=== PATIENT | female | born 1980 | race African-American/Black ===

== ENCOUNTER 2018-02-04 11:24 | Emergency (ER) | payer MEDICAID, OTHER ==
[2018-02-04] MEDS ORDERED: OXYCODONE-ACETAMINOPHEN 5-325 MG TABLET PO ONE (12:47)
[2018-02-04] MEDS ORDERED: CYCLOBENZAPRINE HCL 10 MG TABLET PO ONE (12:47)
[2018-02-04] MEDS ORDERED: ONDANSETRON 4 MG TAB.RAPDIS PO ONE (12:47)
--- NOTE | 2018-02-04 12:52 | ER Document Report ---
HPI - HPI Patient complains to provider of: Low back pain Onset: Yesterday Onset/Duration: Sudden Quality of pain: Achy Severity: Severe Pain Level: 5 Context: Patient presents emergency department with complaints of right-sided low back pain that started yesterday when she was laying on the couch and moved her feet to stand up. She denies trauma. She denies history of IV drug use. Denies fever vomiting diarrhea. Reports no urinary or bowel incontinence or retention. LBM yesterday. Denies weakness or numbness. Patient reports it hurts. She has not taken any kind of Tylenol or Motrin. Reports this never happened to her before. Associated Symptoms: None Exacerbated by: Movement Relieved by: Supine Similar symptoms previously: No Recently seen / treated by doctor: No - MUSCULOSKELETAL Musculoskeletal: REPORTS: Extremity pain Past Medical History - General Information source: Patient Last Menstrual Period: dec, reports she is not sexually active - Social History Smoking Status: Current Every Day Smoker Cigarette use (# per day): Yes Frequency of alcohol use: None Drug Abuse: None Lives with: Family Family History: None Patient has suicidal ideation: No Patient has homicidal ideation: No - Medical History Medical History: Negative Renal/ Medical History: Denies: Hx Peritoneal Dialysis Past Surgical History: Reports: Hx Section - x2 Vertical Provider Document - CONSTITUTIONAL Agree With Documented VS: Yes Exam Limitations: No Limitations General Appearance: WD/WN, Mild Distress - tearful - INFECTION CONTROL TRAVEL OUTSIDE OF THE [place] IN LAST 30 DAYS: No - HEENT HEENT: Atraumatic, Normocephalic - NECK Neck: Normal Inspection, Supple - RESPIRATORY Respiratory: Breath Sounds Normal, No Respiratory Distress, Chest Non-Tender - CARDIOVASCULAR Cardiovascular: Regular Rate, Regular Rhythm - GI/ABDOMEN Gastrointestinal: Abdomen Soft, Abdomen Non-Tender - BACK Back: Normal Inspection - No obvious deformity no erythema warmth or swelling good distal movement and sensation complains of back pain with right straight leg to approximately 30 degrees. No weakness - MUSCULOSKELETAL/EXTREMETIES Musculoskeletal/Extremeties: MAEW, FROM, Non-Tender - NEURO Level of Consciousness: Awake, Alert, Appropriate Motor/Sensory: No Motor Deficit - DERM Integumentary: Warm, Dry, No Rash Adult Front & Back Diagram: 1 - reports pain 2 - reports pain radiating down right leg Course - Re-evaluation Re-evalutation: 02/04/18 Patient was instructed on all medications. She was instructed on the importance of ice follow-up with primary care for recheck. She verbalized understanding. Since mother is driving her home. - Vital Signs Vital signs: Temp Pulse Resp BP Pulse Ox 98.5 F 90 18 140/62 H 97 02/04/18 11:28 02/04/18 11:28 02/04/18 11:28 02/04/18 11:28 02/04/18 11:28 Discharge - Discharge Clinical Impression: Back pain Qualifiers: Back pain location: low back pain Chronicity: acute Back pain laterality: left Sciatica presence: with sciatica Sciatica laterality: sciatica of left side Qualified Code(s): M54.42 - Lumbago with sciatica, left side Condition: Stable Disposition: HOME, SELF-CARE Instructions: Ibuprofen (General) ([facility]), Ice Packs ([facility]), Low Back Pain ([facility]), Muscle Relaxers ([facility]), Oral Narcotic Medication ([facility]), Sciatica ([facility]), Warm Packs ([facility]) Additional Instructions: *You have been evaluated for back pain *Take medication as prescribed- percocet for acute pain, motrin for moderate pain *Rest/Ice as directed *Follow up with a primary care provider within one week *Return to ED for worsening condition, changes, needs, trouble voiding urinary/ bowel incontinence or retention Monitor your blood pressure. Your blood pressure was elevated today. This may be because you were anxious, in pain or because you need medication. It is important to follow up with your primary care provider for full evaluation. Prescriptions: Cyclobenzaprine HCl [Flexeril 5 mg Tablet] 5 mg PO TID #15 tablet Ibuprofen [Motrin 800 mg Tablet] 800 mg PO TID #20 tablet Oxycodone HCl/Acetaminophen [Percocet 5-325 mg Tablet] 1 tab PO ASDIR PRN #15 tablet PRN Reason: Forms: Elevated Blood Pressure, Return to Work
[2018-02-04 13:18] VITALS: BP 110/75
== END 2018-02-04 13:18 | disposition home or self-care (01) ==
LOC: ER 11:24
DX: M54.42 Lumbago with sciatica, left side (principal); F17.210 Nicotine dependence, cigarettes, uncomplicated
CPT/HCPCS: 99283; S0119

== ENCOUNTER 2020-03-19 13:06 | Emergency (ER) | payer OTHER ==
--- NOTE | 2020-03-19 14:46 | ER Document Report ---
ED Medical Screen (RME) - General Chief Complaint: Headache Stated Complaint: HEADACHE,NECK PAIN,BREAST PAIN Time Seen by Provider: 03/19/20 14:42 Mode of Arrival: Ambulatory Information source: Patient Notes: Patient is a 39-year-old female comes emergency room complaining of a headache. Patient states she usually gets headaches but they are normally all-encompassing around the head however 3 days ago she started with one that has materialize behind her right eye and has been intense. She has been nauseated without vomiting. She had a little bit of blurry vision in the right eye with no real loss of vision. She also states this pain radiates down into her neck and arm and into her right sided breast she has a mass that is hard on that and that was not there previously. Patient does state her mother and grandmother were diagnosed medically with migraines she has never personally had a migraine headache until this presentation only on the right side of her head. Physical examination: Patient is a well-nourished well-developed 39-year-old female no apparent distress on examination today. Cardiac: Regular rate and rhythm no murmurs. The patient's blood pressure is 150/85 with a heart rate of 83. Lungs: Bilateral breath sounds breath sounds increased clear to auscultation. HEENT: Examination of patient's head and eyes are normal on examination. Patient's eyes are PERRLA. She tracks well EOMs are normal. Rest of the examination shows nasal mucosa to be normal in appearance. Given patient has no history of these type of headaches felt necessary to go ahead and do the CT of her head. We will do lab work and further evaluation by provider and back will be done. I have also added on a visual acuity to patient. I have greeted and performed a rapid initial assessment of this patient. A comprehensive ED assessment and evaluation of the patient, analysis of test results and completion of the medical decision making process will be conducted by additional ED providers. Dictation of this chart was performed using voice recognition software; therefore, there may be some unintended grammatical errors. TRAVEL OUTSIDE OF THE [place] IN LAST 30 DAYS: No - Related Data Allergies/Adverse Reactions: No Known Allergies Allergy (Unverified 02/04/18 11:25) Past Medical History Renal/ Medical History: Denies: Hx Peritoneal Dialysis Past Surgical History: Reports: Hx Section - x2 Physical Exam - Vital signs Vitals: Temp Pulse Resp BP Pulse Ox 97.8 F 83 18 115/85 99 03/19/20 13:30 03/19/20 13:30 03/19/20 13:30 03/19/20 13:30 03/19/20 13:30 Course - Vital Signs Vital signs: Temp Pulse Resp BP Pulse Ox 97.8 F 83 18 115/85 99 03/19/20 13:30 03/19/20 13:30 03/19/20 13:30 03/19/20 13:30 03/19/20 13:30
--- NOTE | 2020-03-19 15:30 | RADIOLOGY REPORT (SQ) ---
EXAM DESCRIPTION: CT HEAD WITHOUT IMAGES COMPLETED DATE/TIME: 03/19/2020 3:22 pm REASON FOR STUDY: fuentes COMPARISON: None. TECHNIQUE: Axial images acquired through the brain without intravenous contrast. Images reviewed wi th bone, brain and subdural windows. Additional sagittal and coronal reconstructions were generated. Images stored on PACS. All CT scanners at this facility use dose modulation, iterative reconstruction, and/or weight based d osing when appropriate to reduce radiation dose to as low as reasonably achievable (ALARA). [facility]: Dose Right [facility]: CareDose [facility]: Dose Right [facility]: Teradose 4D [facility]: [employer] RADIATION DOSE: CT Rad equipment meets quality standard of care and radiation dose reduction techniq ues were employed. CTDIvol: 53.2 mGy. DLP: 964 mGy-cm. mGy. LIMITATIONS: None. FINDINGS: VENTRICLES: Normal size and contour. CEREBRUM: No masses. No hemorrhage. No midline shift. No evidence for acute infarction. Normal gra y/white matter differentiation. No areas of low density in the white matter. CEREBELLUM: No masses. No hemorrhage. No alteration of density. No evidence for acute infarction. EXTRAAXIAL SPACES: No fluid collections. No masses. ORBITS AND GLOBE: No intra- or extraconal masses. Normal contour of globe without masses. CALVARIUM: No fracture. PARANASAL SINUSES: No fluid or mucosal thickening. SOFT TISSUES: No mass or hematoma. OTHER: No other significant finding. IMPRESSION: NORMAL BRAIN CT WITHOUT CONTRAST. EVIDENCE OF ACUTE STROKE: NO. COMMENT: Quality ID # [id number]: Final reports with documentation of one or more dose reduction techniques (e.g., Automated exposure control, adjustment of the mA and/or kV according to patient size, use of iterative reconstruction technique) TECHNICAL DOCUMENTATION: JOB ID: [id number] 2010 [employer]- All Rights Reserved Reading location - IP/workstation name: [email or web address]
[2020-03-19 16:09] LABS: ABSOLUTE BASOPHILS # (AUTO) 0.1 10^3/uL (0.0-0.2); ABSOLUTE EOSINOPHILS # (AUTO) 0.1 10^3/uL (0.0-0.6); ABSOLUTE LYMPHOCYTES (AUTO) 1.7 10^3/uL (0.5-4.7); ABSOLUTE MONOCYTES (AUTO) 0.5 10^3/uL (0.1-1.4); ABSOLUTE NEUT (AUTO) 6.3 10^3/uL (1.7-8.2); BASOPHILS % (AUTO) 0.6 % (0-2); EOSINOPHILS % (AUTO) 1.6 % (0-6); HEMATOCRIT 37.9 % (36.0-47.0); HEMOGLOBIN 13.3 g/dL (12.0-15.5); LYMPHOCYTES % (AUTO) 20.1 % (13-45); MEAN CORPUSCULAR HEMOGLOBIN 31.1 pg (27.0-33.4); MEAN CORPUSCULAR VOLUME 89 fl (80-97); MONOCYTES % (AUTO) 5.5 % (3-13); PLATELET COUNT 369 10^3/uL (150-450); RED BLOOD COUNT 4.27 10^6/uL (3.72-5.28); RED CELL DISTRIBUTION WIDTH 12.8 % (11.5-14.0); SEGMENTED NEUTROPHILS % (AUTO) 72.2 % (42-78); TOTAL CELLS COUNTED % (AUTO) 100 %; WHITE BLOOD COUNT 8.7 10^3/uL (4.0-10.5)
[2020-03-19 16:27] LABS: ALBUMIN 4.4 g/dL (3.5-5.0); ALKALINE PHOSPHATASE 66 U/L (38-126); ANION GAP 13 (5-19); ASPARTATE AMINO TRANSFERASE 20 U/L (14-36); BILIRUBIN,TOTAL 0.6 mg/dL (0.2-1.3); BLOOD UREA NITROGEN 9 mg/dL (7-20); CALCIUM 10.1 mg/dL (8.4-10.2); CARBON DIOXIDE 26 mmol/L (22-30); CHLORIDE 100 mmol/L (98-107); GLUCOSE 91 mg/dL (75-110); POTASSIUM 4.3 mmol/L (3.6-5.0); TOTAL PROTEIN 7.9 g/dL (6.3-8.2)
[2020-03-19 18:03] LABS: APPEARANCE,URINE CLEAR; BILIRUBIN,URINE NEGATIVE (NEGATIVE); COLOR,URINE YELLOW; GLUCOSE, URINE NEGATIVE (NEGATIVE); KETONES,URINE NEGATIVE (NEGATIVE); LEUKOCYTE ESTERASE,URINE NEGATIVE (NEGATIVE); NITRITE,URINE NEGATIVE (NEGATIVE); PROTEIN,URINE NEGATIVE (NEGATIVE); URINE SPECIFIC GRAVITY 1.018; UROBILINOGEN,URINE NEGATIVE mg/dL (<2.0)
[2020-03-19] MEDS ORDERED: KETOROLAC TROMETHAMINE INJ/PF 30 MG/1 ML SDV IV ONE (18:33)
[2020-03-19] MEDS ORDERED: RINGERS SOLUTION,LACTATED 1,000 ML IV ONE (18:33)
[2020-03-19] MEDS ORDERED: DIPHENHYDRAMINE HCL 50 MG/ML VIAL IV ONE (18:33)
[2020-03-19] MEDS ORDERED: METOCLOPRAMIDE HCL INJ/PF 10 MG/2 ML SDV IV ONE (18:33)
--- NOTE | 2020-03-19 18:34 | ER Document Report ---
ED Headache - General Chief Complaint: Headache Stated Complaint: HEADACHE,NECK PAIN,BREAST PAIN Time Seen by Provider: 03/19/20 14:42 Mode of Arrival: Ambulatory Information source: Patient Notes: 39-year-old female past medical history significant for chronic headaches, no formal diagnosis of migraines but has a past family medical history of mother and grandmother with migraines. States she usually gets her headaches in the spring and in the fall due to seasonal changes. Complains of photophobia, occasionally takes Excedrin usually just goes in a dark room and her headaches will go away. States this headache started off as her normal headache 3 days ago but will not fully go away. Does not keep her awake at night. No sudden thunderclap. Denies worst headache of her life. Did not take any medications for her symptoms. States she is noticed that her eyes have been blurry along with a headache. Denies any head trauma head injury. Nausea but no vomiting. Did not take any medications for her symptoms. States the pain is throbbing behind her right eye radiates into her right neck and arm. Denies any numbness or tingling. No weakness. States is similar to her previous headaches except for that it has lasted longer than most of her headaches. Patient states she a lso noticed a lump to her right breast yesterday. States it slightly better today. No trauma or injury to her breast. No previous mammograms. TRAVEL OUTSIDE OF THE [place] IN LAST 30 DAYS: No - Related Data Allergies/Adverse Reactions: No Known Allergies Allergy (Unverified 02/04/18 11:25) Past Medical History - General Information source: Patient - Social History Smoking Status: Former Smoker Frequency of alcohol use: Rare Drug Abuse: None Family History: Other - Migraines Patient has homicidal ideation: No Renal/ Medical History: Denies: Hx Peritoneal Dialysis Past Surgical History: Reports: Hx Section - x2 Review of Systems - Review of Systems Constitutional: No symptoms reported EENT: Blurred vision Cardiovascular: No symptoms reported Respiratory: No symptoms reported Gastrointestinal: Nausea. denies: Abdominal pain, Diarrhea, Vomiting, Constipation Musculoskeletal: No symptoms reported Skin: Lumps - Right breast lump Hematologic/Lymphatic: No symptoms reported Neurological/Psychological: Headaches -: Yes All other systems reviewed and negative Physical Exam - Vital signs Vitals: Temp Pulse Resp BP Pulse Ox 97.8 F 83 18 115/85 99 03/19/20 13:30 03/19/20 13:30 03/19/20 13:30 03/19/20 13:30 03/19/20 13:30 - General General appearance: Appears well, Alert In distress: Mild - HEENT Head: Normocephalic, Atraumatic Eyes: Normal Conjunctiva: Normal Cornea: Normal Extraocular movements intact: Yes Pupils: PERRL Visual acuity- Right eye: 20/15 Visual acuity- Left eye: 2013 Visual acuity- Both eyes: 20/15 Corrective lenses worn: No Visual diallo normal: Yes - Respiratory Respiratory status: No respiratory distress Chest status: Other - 3 cm hard palpable mass noted to the right breast just above the areola. It is nontender to palpation. No erythema. No axillary lymphadenopathy noted bilaterally. Benign left breast. Breath sounds: Normal Chest palpation: Normal - Cardiovascular Rhythm: Regular Heart sounds: Normal auscultation Murmur: No - Extremities General upper extremity: Normal inspection, Nontender, Normal color, Normal ROM, Normal temperature General lower extremity: Normal inspection, Nontender, Normal color, Normal ROM, Normal temperature, Normal weight bearing. No: Jennifer's sign - Neurological Neuro grossly intact: Yes Cognition: Normal Orientation: AAOx4 Debbie Coma Scale Eye Opening: Spontaneous Winnett Coma Scale Verbal: Oriented Winnett Coma Scale Motor: Obeys Commands Winnett Coma Scale Total: 15 Speech: Normal Motor strength normal: LUE, RUE, LLE, RLE Sensory: Normal Notes: No photophobia noted on exam. Normal visual field exam. Neurovascularly intact. Course - Re-evaluation Re-evalutation: 03/19/20 18:[address] results with patient. Will give IV fluids, Reglan, Benadryl, Toradol and reevaluate. 03/19/20 20:12 Patient is resting comfortably headache has resolved. Aware of need to follow- up outpatient with a primary care physician for her persistent headaches, outpatient follow-up with [facility] for further evaluation of her breast mass. On- call physicians were provided. Tylenol and Motrin as needed for pain. Patient was given strict return to the emergency room guidelines. Return for any new or worsening symptoms. All questions were answered. Patient verbalized understanding and agrees with plan of care. 03/19/20 20:14 - Vital Signs Vital signs: Temp Pulse Resp BP Pulse Ox 97.8 F 83 18 115/85 99 03/19/20 13:30 03/19/20 13:30 03/19/20 13:30 03/19/20 13:30 03/19/20 13:30 - Laboratory Result Diagrams: 03/19/20 15:44 03/19/20 15:44 Laboratory results interpreted by me: 03/19/20 15:44 Urine Blood SMALL H - Diagnostic Test Radiology reviewed: Reports reviewed Discharge - Discharge Clinical Impression: Breast mass, right Headache Qualifiers: Headache type: unspecified Headache chronicity pattern: episodic headache Intractability: not intractable Qualified Code(s): R51.9 - Headache, unspecified Condition: Stable Disposition: HOME, SELF-CARE Instructions: Headache ([facility]), Breast Lumps ([facility]) Referrals: MARIAH VELAZCO DO [NO LOCAL MD] - Follow up as needed CAMI MISTRY MD [ACTIVE STAFF] - Follow up as needed
[2020-03-19 20:30] VITALS: BP 130/80
== END 2020-03-19 20:28 | disposition home or self-care (01) ==
LOC: ER 13:06
DX: N63.10 Unspecified lump in the right breast, unspecified quadrant (principal); R51.9 Headache, unspecified; M54.2 Cervicalgia; N64.4 Mastodynia
CPT/HCPCS: 96361; 99285; 96374; 96375; 36415; 87086; 84703; 85025; 80053; 81001; 70450; J1200; J1885; J2765; J7120